=== PATIENT | female | born 1980 | race Caucasian/White ===

== ENCOUNTER 2017-02-21 16:21 | Inpatient (IN) | payer OTHER ==
[~2017-02-21] VITALS: Ht 157.5 cm; Wt 68.0 kg
[2017-02-21] VITALS (13 sets, daily range): BP systolic 118–135; BP diastolic 60–79
[2017-02-21] MEDS ORDERED: PRENATAL TABLE1 EAC3 PO (17:15)
[2017-02-21] MEDS ORDERED: IBUPROFEN800 MG PO (18:47)
[2017-02-22 06:35] LABS: EOSINOPHIL (%) 0.3 % (0-5); HEMATOCRIT 28.7 % (36.0-46.0); IMMATURE GRANULOCYTE (%) 0.5 % (0.0-0.7); IMMATURE GRANULOCYTE COUNT 0.1 K/uL; INSTRUMENT ABS NEUTROPHIL CT 8.6 K/uL; LYMPHOCYTE COUNT 1.6 K/uL (1.0-2.8); MCH 28.8 PG (29.0-34.0); MCHC 33.8 G/DL (30.0-36.0); MCV 85.2 FL (83-99); MONOCYTE (%) 6.4 % (3-12); MONOCYTE COUNT 0.7 K/uL (0-0.8); NEUTROPHIL (%) 78.3 % (45-76); NEUTROPHIL COUNT 8.6 K/uL (1.8-6.4); PLATELET COUNT 231 K/uL (156-360); RBC DIS.WIDTH-CV 13.4 % (11.8-14.6); RBC DIS.WIDTH-SD 41.2 % (39-53); RED BLOOD COUNT 3.37 M/uL (3.80-5.20)
[2017-02-22 07:48] VITALS: BP 108/67
[2017-02-22 15:31] VITALS: BP 117/70
[2017-02-22 23:07] VITALS: BP 112/57
[2017-02-23 07:37] VITALS: BP 104/65
[2017-02-23 14:42] VITALS: BP 112/72
== END 2017-02-23 18:30 | disposition home or self-care (01) | DRG 775 ==
LOC: LDRP-OP 16:21 → 2WEST 16:22 → LDRP-OP 03-17 13:04
PROVIDERS: Midwife
DX: O62.3 Precipitate labor (principal); O77.0 Labor and delivery complicated by meconium in amniotic fluid; O99.824 Streptococcus B carrier state complicating childbirth; O70.0 First degree perineal laceration during delivery; M41.9 Scoliosis, unspecified; Z37.0 Single live birth; Z3A.40 40 weeks gestation of pregnancy
CPT/HCPCS: 85025; J2590